=== PATIENT | female | born 1990 | race Caucasian/White ===

== ENCOUNTER 2016-12-16 11:01 | Emergency (ER) | payer BC ==
[2016-12-16 11:26] VITALS: BP 124/82
--- NOTE | 2016-12-16 11:43 | UC ---
Complaint Female HPI - HPI Summary HPI Summary: complaint of burning pain with urination and vaginal burning for the past week more painful after having sex no increase in frequency or urgency, denies blood in urine occasionally vaginal itchiness denies vaginal discharge LMP same partner for many years- uses condoms 50% of the time- partner has no symptoms - History Of Current Complaint Chief Complaint: UCGU Stated Complaint: URINARY Time Seen by Provider: 12/16/16 11:32 Hx Obtained From: Patient Hx Last Menstrual Period: 12/09/16 - Allergies/Home Medications Allergies/Adverse Reactions: Allergies Allergy/AdvReac Type Severity Reaction Status Date / Time No Known Allergies Allergy Verified 12/16/16 11:21 PMH/Surg Hx/FS Hx/Imm Hx Previously Healthy: Yes - Surgical History Surgical History: Yes Surgery Procedure, Year, and Place: C Section 08/30, right ACL surgery - Family History Known Family History: Positive: Cardiac Disease Negative: Hypertension, Diabetes - Social History Occupation: Employed Full-time Lives: With Family Alcohol Use: Occasionally Substance Use Type: None Smoking Status (MU): Never Smoked Tobacco Review of Systems Constitutional: Negative Skin: Negative Eyes: Negative ENT: Negative Respiratory: Negative Cardiovascular: Negative Gastrointestinal: Negative Genitourinary: Dysuria Motor: Negative Neurovascular: Negative Musculoskeletal: Negative Neurological: Negative Psychological: Negative All Other Systems Reviewed And Are Negative: Yes Physical Exam Triage Information Reviewed: Yes Appearance: No Pain Distress, Well-Nourished Vital Signs: Initial Vital Signs Temp 99.0 F 12/16/16 11:21 Pulse 72 12/16/16 11:21 Resp 16 12/16/16 11:21 BP 124/82 12/16/16 11:21 Pulse Ox 100 12/16/16 11:21 Vital Signs Reviewed: Yes Eyes: Positive: Conjunctiva Clear ENT: Positive: Pharynx normal, TMs normal Neck: Positive: No Lymphadenopathy Respiratory: Positive: Lungs clear, Normal breath sounds, No respiratory distress Cardiovascular: Positive: RRR, No Murmur, Pulses Normal Abdomen Description: Positive: Nontender, No Organomegaly, Soft. Negative: CVA Tenderness (R), CVA Tenderness (L), Distended, Guarding Bowel Sounds: Positive: Present Musculoskeletal: Positive: No Edema Neurological: Positive: Alert Psychological Exam: Normal Skin Exam: Normal Complaint Female Dx - Course Course Of Treatment: exam completed. will treat for UTI. 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 - Differential Dx/Diagnosis Differential Diagnosis/HQI/PQRI: Sexually Transmitted Disease, Urinary Tract Infection Provider Diagnoses: UTI Discharge - Discharge Plan Condition: Stable Disposition: HOME Prescriptions: Nitrofurantoin Monohyd Macro [Macrobid] 100 mg PO BID #10 cap Phenazopyridine TAB* [Pyridium 100 mg TAB*] 100 mg PO TID #6 tab Patient Education Materials: Urinary Tract Infection in Women (ED) Referrals: Estela Dunn MD [Primary Care Provider] - Additional Instructions: Please start antibiotic as directed Increase fluids and rest Take acetaminophen or ibuprofen for fever or pain Please review your discharge instructions. If your symptoms do not improve please call your primary care provider or return to urgent care.
--- NOTE | 2016-12-18 10:04 | ED ---
Progress - Progress Note Progress Note: PLEASE CALL PATIENT. D/C ABX. Course/Dx - Course Course Of Treatment: exam completed. will treat for UTI. 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
--- NOTE | 2016-12-18 15:09 | UC ---
Progress - Progress Note Progress Note: PLEASE CALL PATIENT. D/C ABX. As per Dr. Linares's note Please call patient and advise her to stop antibiotic
== END 2016-12-16 12:03 | disposition home or self-care (01) ==
LOC: UCCORT 11:01
DX: N39.0 Urinary tract infection, site not specified (principal)
CPT/HCPCS: 81003; 87086; 99212; G0463

== ENCOUNTER 2017-03-26 07:13 | Emergency (ER) | payer BC ==
[2017-03-26 07:35] VITALS: BP 142/78
--- NOTE | 2017-03-26 07:37 | UC ---
Respiratory Complaint HPI - HPI Summary HPI Summary: cough x 5 days + chest congestion and tightness, + wheezing + nasal congestion , no fever, no chills, no sob - History of Current Complaint Chief Complaint: UCRespiratory Stated Complaint: COUGH RUNNY NOSE Time Seen by Provider: 03/26/17 07:21 Hx Obtained From: Patient Hx Last Menstrual Period: 2 weeks Onset/Duration: Gradual Onset, Lasting Days - 5, Still Present Timing: Constant Severity Initially: Moderate Severity Currently: Moderate Character: Cough: Nonproductive Aggravating Factors: Exertion, Deep Breaths Alleviating Factors: Nothing Associated Signs And Symptoms: Positive: Wheezing, URI, Nasal Congestion. Negative: Dyspnea, Fever, Chills, Pleuritic Chest Pain, Hemoptysis, Dizziness, Calf Pain, Calf Swelling, Edema, Hoarseness - Allergies/Home Medications Allergies/Adverse Reactions: Allergies Allergy/AdvReac Type Severity Reaction Status Date / Time wood stain Allergy Wheezing Uncoded 03/26/17 07:23 Home Medications: Home Medications Albuterol HFA INHALER* [Ventolin HFA Inhaler*] 1 - 2 puff INH Q12H PRN 03/26/17 [History Confirmed 03/26/17] O C 1 tab PO QPM 03/26/17 [History] PMH/Surg Hx/FS Hx/Imm Hx Respiratory History: Asthma - Surgical History Surgical History: Yes Surgery Procedure, Year, and Place: C Section 08/30, right ACL surgery - Family History Known Family History: Positive: Cardiac Disease Negative: Hypertension, Diabetes - Social History Alcohol Use: Occasionally Substance Use Type: None Smoking Status (MU): Never Smoked Tobacco Review of Systems Constitutional: Negative Skin: Negative Eyes: Negative ENT: Nasal Discharge Respiratory: Cough Cardiovascular: Negative Gastrointestinal: Negative Is Patient Immunocompromised?: No All Other Systems Reviewed And Are Negative: Yes Physical Exam Triage Information Reviewed: Yes Appearance: Well-Appearing, No Pain Distress, Well-Nourished Vital Signs: Initial Vital Signs Temp 97.6 F 03/26/17 07:16 Pulse 90 03/26/17 07:16 Resp 12 03/26/17 07:16 BP 142/78 03/26/17 07:16 Pulse Ox 100 03/26/17 07:16 Vital Signs Reviewed: Yes Eyes: Positive: Conjunctiva Clear ENT: Positive: Normal ENT inspection, Hearing grossly normal, Pharynx normal, Nasal congestion. Negative: Nasal drainage Neck: Positive: Supple, Nontender, No Lymphadenopathy Respiratory: Positive: Chest non-tender, Lungs clear, Normal breath sounds Cardiovascular: Positive: RRR, No Murmur, Pulses Normal Abdomen Description: Positive: Nontender, No Organomegaly, Soft Musculoskeletal Exam: Normal Skin Exam: Normal UC Diagnostic Evaluation - Laboratory O2 Sat by Pulse Oximetry: 100 Respiratory Course/Dx - Differential Dx/Diagnosis Provider Diagnoses: bronchitis Discharge - Discharge Plan Condition: Stable Disposition: HOME Prescriptions: Benzonatate [TESSALON 200 MG CAP] 200 mg PO Q8H PRN #21 cap PRN Reason: Cough Guaifenesin-Codeine [Cheratussin AC] 10 ml PO Q8H PRN #120 ml MDD 30 ml PRN Reason: Cough Patient Education Materials: Acute Bronchitis (ED) Referrals: Estela Dunn MD [Primary Care Provider] - If Needed Additional Instructions: viral illness no need for antibiotics may use tessalon as needed for cough during day time may use cheratussin as needed for cough during night time
== END 2017-03-26 07:40 | disposition home or self-care (01) ==
LOC: UCCORT 07:13
DX: J40 Bronchitis, not specified as acute or chronic (principal); Z91.048 Other nonmedicinal substance allergy status
CPT/HCPCS: 99212; G0463

== ENCOUNTER 2018-02-09 14:28 | Emergency (ER) | payer BC, OTHER ==
[2018-02-09 15:22] VITALS: BP 115/75
--- NOTE | 2018-02-09 15:36 | UC ---
Bite Injury/Animal HPI - HPI Summary HPI Summary: PATIENT WAS LEAVING A HOME TODAY AFTER DOING A PHYSICAL THERAPY VISIT WHEN THE FAMILY PET BIT HER ON THE LEFT THIGH AND RIGHT BUTTOCK. PATIENT STATES DOG WAS ACTING FINE BEFORE AND AFTER THE INCIDENT. SHE NOTES INJURIES ARE NOT DEEP. SHE IS NOT CERTAIN OF HER LAST TETANUS BUT THINKS SHE MAY BE UTD. SHE THINKS DOG IS UTD ON VACCINATIONS WELL. - History of Current Complaint Chief Complaint: UCBiteInjury Stated Complaint: WC-DOG BITE Time Seen by Provider: 02/09/18 14:55 Hx Obtained From: Patient Hx Last Menstrual Period: 01/19/18 Pain Intensity: 0 Animal Available for Observation: Yes - Allergies/Home Medications Allergies/Adverse Reactions: Allergies Allergy/AdvReac Type Severity Reaction Status Date / Time No Known Allergies Allergy Verified 02/09/18 15:22 PMH/Surg Hx/FS Hx/Imm Hx Previously Healthy: Yes - Surgical History Surgical History: Yes Surgery Procedure, Year, and Place: C Section 08/30, right ACL surgery - Family History Known Family History: Positive: Cardiac Disease Negative: Hypertension, Diabetes - Social History Occupation: Employed Full-time Alcohol Use: Occasionally Substance Use Type: None Smoking Status (MU): Never Smoked Tobacco - Immunization History Most Recent Tetanus Shot: 2012 Vaccination Up to Date: Yes Review of Systems Constitutional: Negative Skin: Other - ABRASIONS Eyes: Negative ENT: Negative Respiratory: Negative Cardiovascular: Negative Gastrointestinal: Negative Genitourinary: Negative Motor: Negative Neurovascular: Negative Musculoskeletal: Negative Neurological: Negative Psychological: Negative Is Patient Immunocompromised?: No All Other Systems Reviewed And Are Negative: Yes Physical Exam Triage Information Reviewed: Yes Appearance: Well-Appearing Vital Signs: Initial Vital Signs Temp 98.1 F 02/09/18 15:14 Pulse 92 02/09/18 15:14 Resp 16 02/09/18 15:14 BP 115/75 02/09/18 15:14 Pulse Ox 97 02/09/18 15:14 Vital Signs Reviewed: Yes Eyes: Positive: Conjunctiva Clear ENT: Positive: Normal ENT inspection Neck: Positive: Supple, Nontender, No Lymphadenopathy Respiratory: Positive: Lungs clear, Normal breath sounds Cardiovascular: Positive: RRR, No Murmur Abdomen Description: Positive: Nontender, No Organomegaly, Soft Bowel Sounds: Positive: Present Musculoskeletal: Positive: ROM Intact Neurological: Positive: Alert Psychological: Positive: Age Appropriate Behavior Skin Exam: Normal, Other - Superficial abrasion with mild bruising L lateral distal thigh and very superficial abrasions R inferior buttock. Bite Injury Course/Dx - Course Course Of Treatment: pt declined tetanus citing she will call her pcp in am to see if UTD, if not, she will get it from the pcp. this is a low risk injury thus I think that is reasonable. - Differential Dx/Diagnosis Provider Diagnoses: DOG BITE CAUSING ABRASIONS TO LEFT THIGH AND RIGHT BUTTOCK Discharge - Sign-Out/Discharge Documenting (check all that apply): Patient Departure All imaging exams completed and their final reports reviewed: No Studies - Discharge Plan Condition: Stable Disposition: HOME Patient Education Materials: Animal Bite (ED) Referrals: Estela Dunn MD [Primary Care Provider] - If Needed Additional Instructions: DIAGNOSIS: DOG BITE CAUSING ABRASIONS TO LEFT THIGH AND RIGHT BUTTOCK - Billing Disposition and Condition Condition: STABLE Disposition: Home
== END 2018-02-09 15:52 | disposition home or self-care (01) ==
LOC: UCCORT 14:28
DX: S71.152A Open bite, left thigh, initial encounter (principal); S31.815A Open bite of right buttock, initial encounter; W54.0XXA Bitten by dog, initial encounter; Y92.009 Unspecified place in unspecified non-institutional (private) residence as the place of occurrence of the external cause; Z28.29 Immunization not carried out because of patient decision for other reason
CPT/HCPCS: 99212; G0463

== ENCOUNTER 2018-10-19 18:24 | Emergency (ER) | payer BC, OTHER ==
--- NOTE | 2018-10-19 18:28 | UC ---
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 pt has a physical therapy work out an her lt leg was bent outward and her pelvice held down and she heard a very bad pop. pt thinks this was her SI joint. pt is having difficulty standing and finding any position for sleeping. - History of Current Complaint Stated Complaint: BACK PAIN Time Seen by Provider: 10/19/18 18:27 Hx Last Menstrual Period: 01/19/18 - Allergies/Home Medications Allergies/Adverse Reactions: Allergies Allergy/AdvReac Type Severity Reaction Status Date / Time No Known Allergies Allergy Verified 10/19/18 18:34 Home Medications: Home Medications Cyclobenzaprine TAB* [Flexeril 10 MG TAB*] 5 mg PO SEE INSTRUCTIONS 10/19/18 [ History Confirmed 10/19/18] Diclofenac Sodium EC TAB* [Voltaren EC TAB*] 75 mg PO TID PRN 10/19/18 [History Confirmed 10/19/18] Gabapentin 900 mg PO TID 10/19/18 [History Confirmed 10/19/18] acetaZOLAMIDE TAB* [Diamox TAB*] 500 mg PO BID 10/19/18 [History Confirmed 10/19] PMH/Surg Hx/FS Hx/Imm Hx Respiratory History: Asthma - Surgical History Surgical History: Yes Surgery Procedure, Year, and Place: C Section 08/30, right ACL surgery - Family History Known Family History: Positive: Cardiac Disease Negative: Hypertension, Diabetes - Social History Occupation: Employed Full-time Lives: With Family Alcohol Use: Occasionally Substance Use Type: None Smoking Status (MU): Never Smoked Tobacco - Immunization History Most Recent Tetanus Shot: 2012 Vaccination Up to Date: Yes Review of Systems All Other Systems Reviewed And Are Negative: Yes Constitutional: Positive: Negative Skin: Positive: Negative Respiratory: Positive: Negative Cardiovascular: Positive: Negative Neurovascular: Positive: Negative Musculoskeletal: Positive: Other: - Back pain Neurological: Positive: Negative Psychological: Positive: Negative Physical Exam - Summary Physical Exam Summary: GENERAL: NAD. WDWN. No pain distress. SKIN: No rashes, sores, lesions, or open wounds. NECK: Supple. FROM. Nontender. No lymphadenopathy. CHEST: CTAB. No r/r/w. No accessory muscle use. Breathing comfortably and in no distress. CV: RRR. Without m/r/g. Pulses intact. Cap refill <2seconds MSK: TTP over lumbar paraspinal muscles. Pain with flexion and extension of spine. Positive SLR b/l for low back pain without radiation. Positive RASHMI for back pain b/l. Strength 5/5 B/L LEs including dorsiflexion and plantar flexion. FROM B/L LEs. No edema. NEURO: Alert. Sensations intact B/L LEs L3-S1. Reflexes intact PSYCH: Age appropriate behavior. Triage Information Reviewed: Yes Vital Signs Reviewed: Yes Discharge - Sign-Out/Discharge Documenting (check all that apply): Patient Departure All imaging exams completed and their final reports reviewed: No Studies - Discharge Plan Condition: Stable Disposition: HOME Referrals: Estela Dunn MD [Primary Care Provider] - - Billing Disposition and Condition Condition: STABLE Disposition: Home
[2018-10-19 18:34] VITALS: BP 109/71
--- NOTE | 2018-10-19 19:06 | UC ---
Back Pain HPI - HPI Summary HPI Summary: Patient is a 28 year old female, who presents today to the urgent care with low back pain for past 3 days. 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 She had lumbar radicular symptoms on the left side since June. Had an epidural injection 3 weeks ago and symptoms were improving. 3 days ago on she was working with the physical therapist and while doing a certain exercise she felt a pop in her back with worsening of her symptoms. Denies any incontinence, saddle anesthesia , motor motor weakness - History of Current Complaint Chief Complaint: UCBackPain Stated Complaint: BACK PAIN Time Seen by Provider: 10/19/18 18:27 Hx Obtained From: Patient Hx Last Menstrual Period: 01/19/18 ?: No - LMP mid-August Pain Intensity: 4 - Allergies/Home Medications Allergies/Adverse Reactions: Allergies Allergy/AdvReac Type Severity Reaction Status Date / Time No Known Allergies Allergy Verified 10/19/18 18:34 Home Medications: Home Medications Cyclobenzaprine TAB* [Flexeril 10 MG TAB*] 5 mg PO SEE INSTRUCTIONS 10/19/18 [ History Confirmed 10/19/18] Diclofenac Sodium EC TAB* [Voltaren EC TAB*] 75 mg PO TID PRN 10/19/18 [History Confirmed 10/19/18] Gabapentin 900 mg PO TID 10/19/18 [History Confirmed 10/19/18] acetaZOLAMIDE TAB* [Diamox TAB*] 500 mg PO BID 10/19/18 [History Confirmed 10/19] PMH/Surg Hx/FS Hx/Imm Hx - Additional Past Medical History Additional PMH: asthma, currently not on inhalers Intracranial hypertension for which she is on Diamox Family history noncontributory Previously Healthy: Yes - Surgical History Surgical History: Yes Surgery Procedure, Year, and Place: C Section 08/30, right ACL surgery - Family History Known Family History: Positive: Cardiac Disease Negative: Hypertension, Diabetes - Social History Alcohol Use: Occasionally Substance Use Type: None Smoking Status (MU): Never Smoked Tobacco - Immunization History Most Recent Tetanus Shot: 2012 Vaccination Up to Date: Yes Review of Systems All Other Systems Reviewed And Are Negative: Yes Constitutional: Positive: Negative Skin: Positive: Negative Eyes: Positive: Negative ENT: Positive: Negative Respiratory: Positive: Negative Cardiovascular: Positive: Negative Gastrointestinal: Positive: Negative Genitourinary: Positive: Negative Motor: Positive: Negative Neurovascular: Positive: Negative Musculoskeletal: Positive: Arthralgia - low back pain, Other: - painful range of motion of lumbar spine Neurological: Positive: Negative Psychological: Positive: Negative Is Patient Immunocompromised?: No Physical Exam - Summary Physical Exam Summary: Physical Exam: Const: Appears well. No signs of apparent distress present. Alert and oriented x 3. Musculo: Walks with a normal gait. Head/Face: Atraumatic, normocephalic on inspection. Eyes: EOMI and PERRLA in both eyes. Conjunctivae clear. No discharge noted ENT: Hearing yuko Respiratory: Respirations are unlabored. Lungs clear to auscultation bilaterally, no wheezing , rhonchi or rales noted . CVS: Regular rate and Rhythm, S1S2 normal , no murmurs identified. Extremities: Peripheral circulation is grossly normal. Pulses 2+ Abdomen : Soft non tender , nondistended , Bowel sounds present . No guarding , rebound tenderness or rigidity noted. Skin: No lesions or rash located on the upper extremities or on the lower extremities. Neuro: Cranial nerves II to XII intact, motor and sensory intact. DTR Intact bilaterally. Mood is normal. Affect is normal. Spine: No loss of the normal lumbar lordosis or step-off. No midline or paraspinal tenderness spine noted. There is no tenderness of the costovertebral angle bilaterally. no tenderness in bilateral SI joint Stability: No obvious instability. Strength: Flexion, extension, left rotation, left lateral bending, right lateral bending and right rotation strength is intact. ROM:slightly painful range of motion Special Tests: Straight leg raise is positive on the left side at 30. Hip: Insp/Palp: Normal to inspection and palpation. Strength: 5/5 bilaterally. Normal muscle tone bilaterally. ROM: Bilateral hips: full ROM - internal and external rotation Skin: No scars, rashes, lesions or ecchymosis. Neuro: Motor intact. Reflexes: Left DTR's are intact. Right DTR's are intact. Toes downgoing. Coordination normal. Distal pulses intact. Triage Information Reviewed: Yes Vital Signs: Initial Vital Signs Temp 98.2 F 10/19/18 18:29 Pulse 83 10/19/18 18:29 Resp 18 10/19/18 18:29 BP 109/71 10/19/18 18:29 Pulse Ox 99 10/19/18 18:29 Vital Signs Reviewed: Yes Back Pain Course/Dx - Course Course Of Treatment: During the visit today, we discussed the findings consistent with exacerbation of her lumbar radiculopathy and further plan. she was given 1 dose of prednisone and one dose of [place]. I will prescribe the Vicodin and Medrol Dosepak to the pharmacy . advised her to take Flexeril at night. She will continue working with physical therapist and follow-up with a auto transmission specialist in [place]. Patient expressed understanding . - Differential Dx/Diagnosis Provider Diagnosis: Lumbar back pain with radiculopathy affecting left lower extremity Discharge - Sign-Out/Discharge Documenting (check all that apply): Patient Departure All imaging exams completed and their final reports reviewed: No Studies - Discharge Plan Condition: Stable Disposition: HOME Prescriptions: Hydrocodone/Acetaminophen [Vicodin 5-300 mg Tablet] 1 each PO BID PRN 7 Days # 14 tablet MDD 2 PRN Reason: Pain methylPREDNISolone [Medrol Dosepak 4 MG*] 4 mg PO .SEE MARIE INSTRUCTION 6 Days # 1 marie Patient Education Materials: Lumbar Radiculopathy (ED), Lower Back Exercises ( ED) Referrals: Estela Dunn MD [Primary Care Provider] - 1 Week Additional Instructions: Please start taking the medication as prescribed to the pharmacy . Follow up with your primary care doctor in 1 week continue physical therapy Return to Urgent care / ER if symptoms get worse. - Billing Disposition and Condition Condition: STABLE Disposition: Home
[2018-10-19] MEDS ORDERED: HYDROcodone/ACETAMIN 5-325 MG* 1 TAB PO ONE (19:21)
[2018-10-19] MEDS ORDERED: predniSONE TAB* 20 MG PO ONE (19:21)
== END 2018-10-19 19:34 | disposition home or self-care (01) ==
LOC: UCEAST 18:24
DX: M54.16 Radiculopathy, lumbar region (principal); M51.27 Other intervertebral disc displacement, lumbosacral region; J45.909 Unspecified asthma, uncomplicated; G93.2 Benign intracranial hypertension
CPT/HCPCS: 99212; G0463; J7512